=== PATIENT | female | born 1990 | race Two or more races ===

== ENCOUNTER → 2021-01-09 | Day surgery (SDC) | payer OTHER ==
[~2021-01-09] MED LIST: PROTONIX20 MG PO
== END | disposition home or self-care (01) ==
LOC: ADM 01-02 13:00 → AMB-ENDOS 08:12
PROVIDERS: ATTEND Surgery
DX: D13.1 Benign neoplasm of stomach (principal); Z20.822 Contact with and (suspected) exposure to COVID-19; K44.9 Diaphragmatic hernia without obstruction or gangrene